=== PATIENT | female | born 1970 | race Caucasian/White ===

== ENCOUNTER 2017-03-09 12:40 | Emergency (ER) | payer SELFPAY ==
[2017-03-09] MEDS ORDERED: diphenhydrAMINE HCl 50 MG/ML 1 ML VIAL ONE (13:00)
[2017-03-09] MEDS ORDERED: Ketorolac Tromethamine 30 MG/ML VIAL ONE (13:00)
[2017-03-09] MEDS ORDERED: Ondansetron HCl/PF 4 MG/2 ML Vial ONE (13:00)
[2017-03-09 13:19] LABS: #Basophils 0.2 thou/uL (0.0-0.2); #Eosinphils 0.1 thou/uL (0.0-0.7); #Lymphocytes 3.3 thou/uL (1.20-3.40); #Monocytes 1.1 thou/uL (0.11-0.59); #Neutrophils 11.3 thou/uL (1.40-6.50); %Basophils 1.5 % (0.0-1.0); %Eosinophils 0.6 % (0.0-10.0); %Lymphocytes 20.9 % (21.0-51.0); %Monocytes 6.6 % (0.0-10.0); %Neutrophils 70.4 % (42.0-75.0); Hemoglobin 15.3 g/dL (12.0-16.0); Mean Corpuscular HGB CONC 34.6 g/dL (32.0-36.0); Mean Corpuscular Hemoglobin 31.9 pg (27.0-31.0); Mean Corpuscular Volume 92.5 fl (81.0-99.0); Mean Platelet Volume 7.6 fL (7.4-10.4); Platelet Count 345 thou/uL (130-400)
[2017-03-09 13:20] LABS: ALT (SGPT) 18 U/L (0-55); AST (SGOT) 17 U/L (5-34); Albumin 4.2 g/dL (3.5-5.0); Alkaline Phosphatase 60 U/L (40-150); Anion Gap 16 mmol/L (10-20); BUN (Urea Nitrogen) 10 mg/dL (7.0-18.7); Bilirubin, Total 0.5 mg/dL (0.2-1.2); Calc. Creatinine Clearance 0 mL/min (70-130); Carbon Dioxide 18 mmol/L (22-29); Chloride 105 mmol/L (98-107); Estimated GFR-MDRD 80; Globulin 2.8 g/dL (2.4-3.5); Glucose 106 mg/dL (70-105); Potassium 4.3 mmol/L (3.5-5.1); Sodium 135 mmol/L (136-145)
[2017-03-09 14:07] LABS: Bilirubin Negative (Negative); Blood, Urine Large (Negative); Clarity Cloudy (Clear); Glucose, Urine (Dipstick) Negative (Negative); Leukocyte Trace (Negative); Nitrite Positive (Negative); Protein, Urine (Dipstick) 30 mg/dL (Neg-Trace); Urobilinogen 0.2 mg/dL (0.2-1.0)
[2017-03-09 14:09] LABS: Bacteria/HPF 4+ HPF (None Seen); Pregnancy Test - Urine (BHCG) NEGATIVE (NEGATIVE); Pregu Control Bar Appear? YES (CONTROL BAR); RBC/HPF GREATER THAN 50-TNTC HPF (0-3); Transitional Epithelial 0-3 HPF (0-3); WBC/HPF 21-50 HPF (0-3); Yeast-All Forms Rare HPF (None Seen)
[2017-03-09] MEDS ORDERED: Nitrofurantoin Monohyd/M-Cryst 100 MG CAP ONE (14:23)
[2017-03-09] MEDS ORDERED: Ciprofloxacin 500 MG TAB ONE (14:23)
--- NOTE | 2017-03-09 15:04 | CT ---
CT ABDOMEN AND PELVIS WITHOUT CONTRAST: Date: 03/09/17 HISTORY: Right-sided flank pain. FINDINGS: Absence of oral and IV contrast reduces the sensitivity of exam, particularly for evaluation of ellyn d organs and bowel. The lung bases are clear. No free air or free fluid is seen in the abdomen or pelvis. No calcified g allstones are seen. Calcified granulomas are noted in the dome of the liver. No calculi seen in the kidneys, ureters, or the urinary bladder. There is a 1.0 cm fat-containing le selwyn in the left renal cortex consistent with angiomyolipoma. There is mild right-sided hydrouretero nephrosis likely due to recently passed calculus or UTI. Uterus and ovaries are present. A normal appearing appendix is noted. No acute osseous abnormalities are seen. There is no evidence of aneurysmal dilatation of the abdominal aorta. IMPRESSION: 1. 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 2. No CT evidence of urinary tract calculi. 3. Mild right hydroureteronephrosis likely due to recent passage of calculus or UTI. POS: MATTHEW
== END 2017-03-09 14:46 | disposition home or self-care (01) ==
LOC: MADERS 12:40
DX: N23 Unspecified renal colic (principal); N39.0 Urinary tract infection, site not specified; F17.210 Nicotine dependence, cigarettes, uncomplicated
CPT/HCPCS: 36415; 74176; 80053; 81001; 81025; 85025; 87086; 96374; 96375; 96376; J1200; J1885; J2270; J2405

== ENCOUNTER 2017-11-27 07:50 | Emergency (ER) | payer SELFPAY ==
[2017-11-27 08:21] LABS: Bilirubin Negative (Negative); Blood, Urine Moderate (Negative); Glucose, Urine (Dipstick) Negative (Negative); Leukocyte Negative (Negative); Nitrite Negative (Negative); Protein, Urine (Dipstick) Negative (Neg-Trace); Specific Gravity, Urine 1.025 (1.005-1.030); Urobilinogen 0.2 mg/dL (0.2-1.0); pH, Urine 5.5 (5.0-9.0)
[2017-11-27 08:26] LABS: #Basophils 0.1 thou/uL (0.0-0.2); #Eosinphils 0.1 thou/uL (0.0-0.7); #Lymphocytes 3.2 thou/uL (1.20-3.40); #Monocytes 0.7 thou/uL (0.11-0.59); #Neutrophils 4.5 thou/uL (1.40-6.50); %Basophils 1.1 % (0.0-1.0); %Eosinophils 1.3 % (0.0-10.0); %Lymphocytes 37.4 % (21.0-51.0); %Monocytes 7.9 % (0.0-10.0); %Neutrophils 52.3 % (42.0-75.0); Hemoglobin 14.3 g/dL (12.0-16.0); Mean Corpuscular HGB CONC 33.6 g/dL (32.0-36.0); Mean Corpuscular Hemoglobin 31.1 pg (27.0-31.0); Mean Corpuscular Volume 92.5 fl (81.0-99.0); Mean Platelet Volume 7.4 fL (7.4-10.4); Platelet Count 380 thou/uL (130-400); RBC Distribution Width 11.9 % (11.5-14.5); Red Blood Cell (RBC) Count 4.61 mill/uL (4.20-5.40); White Blood Cell (WBC) Count 8.6 thou/uL (4.8-10.8)
[2017-11-27] MEDS ORDERED: Morphine 4 MG/ML VIAL ONE (08:26)
[2017-11-27] MEDS ORDERED: Ketorolac Tromethamine 30 MG/ML VIAL ONE (08:27)
[2017-11-27] MEDS ORDERED: Ondansetron HCl/PF 4 MG/2 ML Vial ONE ×2 (08:27→12:44)
[2017-11-27 08:34] LABS: Benzodiazepine Screen Detected (NotDetected); Methamphetamine Detected (NotDetected); Opiate Screen Detected (NotDetected); Phencyclidine (PCP) Not Detected (NotDetected); THC/Cannabinoid Screen Detected (NotDetected)
[2017-11-27 08:35] LABS: Amphetamine Not Detected (NotDetected); Barbiturates Screen Not Detected (NotDetected); Cocaine Metabolite Screen Not Detected (NotDetected); Medtox Control Line Valid? VALID (VALID); Methadone Not Detected (NotDetected); Oxycodone Screen Not Detected (NotDetected); Tricyclic Screen Not Detected (NotDetected)
[2017-11-27 08:39] LABS: Clarity Hazy (Clear)
--- NOTE | 2017-11-27 08:40 | CT ---
CT ABDOMEN AND PELVIS: Date: 11/27/17 PROVIDED CLINICAL HISTORY: Right upper back pain. FINDINGS: Comparison made with the study dated 03/09/17. The visualized lung bases are free of significant opacity. There is a stable, approximately 10-11 mm, left renal angiomyolipoma. No evidence for urinary tract c alculi or hydronephrosis. The solid abdominal organs are suboptimally evaluated without IV contrast, but demonstrate an unremarkable unenhanced CT appearance. There is no bowel dilatation, inflammatory fat stranding, free fluid, or lymph node enlargement appar ent. Occasional vascular calcifications are seen. The osseous structures demonstrate no concerning osteoblastic or osteolytic lesions. There is no CT e vidence for appendicitis. IMPRESSION: No evidence for urinary tract calculi or hydronephrosis. POS: MATTHEW
[2017-11-27] MEDS ORDERED: Haloperidol Lactate 5 MG/ML VIAL ONE (08:43)
[2017-11-27 08:48] LABS: Bacteria/HPF 1+ HPF (None Seen); WBC/HPF 0-3 HPF (0-3)
[2017-11-27 08:50] LABS: Anion Gap 16 mmol/L (10-20); BUN (Urea Nitrogen) 13 mg/dL (7.0-18.7); Calc. Creatinine Clearance 0 mL/min (70-130); Calcium 9.1 mg/dL (7.8-10.44); Carbon Dioxide 19 mmol/L (22-29); Chloride 106 mmol/L (98-107); Estimated GFR-MDRD 80; Glucose 103 mg/dL (70-105); Sodium 136 mmol/L (136-145)
== END 2017-11-27 09:35 | disposition home or self-care (01) ==
LOC: MADERS 07:50
DX: N23 Unspecified renal colic (principal)
CPT/HCPCS: 74176; 80048; 80306; 81003; 81015; 85025; 96374; 96375; J1630; J1885; J2270; J2405